=== PATIENT | female | born 1980 | race Caucasian/White ===

== ENCOUNTER → 2019-11-29 | Outpatient (CLI) | payer BC ==
[~2019-11-29] MED LIST: ASPIRIN E.C. 8181 MG PO; MOTRIN 800800 MG/TAB; MOTRIN 800800 MG/TAB PO; PRENATAL VITAMI1 TA5 PO; SENOKOT S 50 MG1 TAB PO; SLOWFE; [UNRECOGNIZED DRUG - OTHER]
== END ==
LOC: MC.RAD 10-11 09:15
DX: Z12.31 Encounter for screening mammogram for malignant neoplasm of breast (principal)

== ENCOUNTER → 2020-12-01 | Outpatient (CLI) | payer BC | LOC: MC.RAD 11:45 | DX: Z12.31 Encounter for screening mammogram for malignant neoplasm of breast (principal) ==

== ENCOUNTER → 2021-12-16 | Outpatient (CLI) | payer BC | LOC: MC.RAD 07:54 | DX: Z12.31 Encounter for screening mammogram for malignant neoplasm of breast (principal) ==

== ENCOUNTER → 2021-12-18 | Outpatient (CLI) | payer BC | LOC: MC.RAD 09:55 | DX: N64.89 Other specified disorders of breast (principal) ==

== ENCOUNTER → 2022-01-06 | Outpatient (CLI) | payer BC | LOC: MC.RAD 06:59 | DX: N64.9 Disorder of breast, unspecified (principal) ==

== ENCOUNTER → 2024-05-09 | Outpatient (CLI) | payer BC | LOC: MC.RAD 08:30 | DX: Z12.31 Encounter for screening mammogram for malignant neoplasm of breast (principal) ==